=== PATIENT | male | born 1930 ===

== ENCOUNTER 2019-01-24 17:31 | Emergency (ER) | payer SELFPAY ==
--- NOTE | 2019-01-24 18:03 | RAD ---
SINGLE VIEW OF THE CHEST: 01/24/19 COMPARISON: None. HISTORY: Chest pain. FINDINGS: Single view of the chest shows the cardiomediastinal silhouette which is upper limits of normal in si ze with atherosclerotic calcifications in the aorta. There is no evidence of consolidation, mass, or pleural effusion. Degenerative changes are seen in the spine. IMPRESSION: No evidence of acute cardiopulmonary disease. POS: [facility]
== END 2019-01-24 18:33 | disposition home or self-care (01) ==
LOC: ERS 17:31
DX: S40.212A Abrasion of left shoulder, initial encounter (principal); S60.511A Abrasion of right hand, initial encounter; I48.91 Unspecified atrial fibrillation; Z79.01 Long term (current) use of anticoagulants; Z79.899 Other long term (current) drug therapy; V43.52XA Car driver injured in collision with other type car in traffic accident, initial encounter; W22.10XA Striking against or struck by unspecified automobile airbag, initial encounter; Y92.410 Unspecified street and highway as the place of occurrence of the external cause
CPT/HCPCS: 71045